=== PATIENT | male | born 1950 | race Caucasian/White ===

== ENCOUNTER 2024-02-13 10:05 | Inpatient (IN) ==
[2024-02-13] MEDS ORDERED: Ondansetron 4 mg VIAL 2 MG/ML 2 ml VIAL IV PRN (12:19)
[2024-02-13 12:31] LABS: ABS Eosinophils 0.1 10^3/uL (0.0-0.5); ABS Lymphocytes 1.5 10^3/uL (1.0-4.8); ABS Monocytes 0.3 10^3/uL (0.0-1.1); ABS Neutrophils 2.6 10^3/uL (1.5-7.6); ABS Nucleated RBC 0.01 10^3/ul; Eosinophil % 1.5 %; Hematocrit 24.5 % (38-53); Hemoglobin 8.5 g/dL (13.2-16.3); Lymphocyte % 32.7 %; Mean Corpuscular Hemoglobin 31.3 pg (27-33); Mean Corpuscular Hgb Conc 34.9 g/dL (31-36); Mean Corpuscular Volume 89.6 fL (80-97); Mean Platelet Volume 9.5 fL (7.5-11.2); Nucleated Red Blood Cells % 0.2 %/100WBC (0.0-0.8); Platelet Count 118 10^3/uL (150-450); Red Blood Count 2.73 10^6/uL (4.06-5.63); Red Cell Distribution Width 16.4 % (12-17); White Blood Count 4.6 10^3/uL (3.6-10.2)
[2024-02-13 13:04] LABS: INR 1.18 (0.85-1.14)
[2024-02-13] MEDS ORDERED: fentaNYL 100 mcg/2 ml 50 MCG/ML VIAL IV SLOW PU PRN (13:11)
[2024-02-13] MEDS: Pentoxifylline CR 400 mg TAB 400 MG PO SCH (13:47)
[2024-02-13 14:25] LABS: Albumin 3.8 g/dL (3.2-5.2); Albumin/Globulin Ratio 1.4 (1-3); C Reactive Protein 55.68 mg/L (<8.01); Calcium 8.4 mg/dL (8.6-10.3); Creatinine, Serum 0.96 mg/dL (0.67-1.17); Globulin 2.8 g/dL (2-4); Potassium 3.7 mmol/L (3.5-5.0); Total Bilirubin 0.9 mg/dL (0.2-1.0); Total Protein 6.6 g/dL (6.4-8.9); eGFR CKD-EPI 83.5 (>60)
[2024-02-13] MEDS ORDERED: Dextrose 50% Syringe 50 ml 25 GM/50 ML SYRINGE IV PUSH PRN (15:46)
[2024-02-13] MEDS: Sulfur Hexaflouride MICROSPHR 25 MG VIAL IV ONE (16:20)
[2024-02-13] MEDS ORDERED: Insulin GLARGINE 100 un/ml 10 ml VIAL SUBCUT SCH (21:00)
[2024-02-14 06:35] LABS: Calcium 8.2 mg/dL (8.6-10.3); Creatinine, Serum 0.98 mg/dL (0.67-1.17); Magnesium 1.7 mg/dL (1.9-2.7); Potassium 3.8 mmol/L (3.5-5.0); eGFR CKD-EPI 81.4 (>60)
[2024-02-14 07:16] LABS: ABS Eosinophils 0.1 10^3/uL (0.0-0.5); ABS Lymphocytes 1.6 10^3/uL (1.0-4.8); ABS Monocytes 0.4 10^3/uL (0.0-1.1); ABS Neutrophils 1.9 10^3/uL (1.5-7.6); ABS Nucleated RBC 0.01 10^3/ul; Hemoglobin 8.1 g/dL (13.2-16.3); Lymphocyte % 39.5 %; Mean Corpuscular Hemoglobin 30.7 pg (27-33); Mean Corpuscular Hgb Conc 33.9 g/dL (31-36); Mean Corpuscular Volume 90.4 fL (80-97); Mean Platelet Volume 9.8 fL (7.5-11.2); Nucleated Red Blood Cells % 0.4 %/100WBC (0.0-0.8); Platelet Count 116 10^3/uL (150-450); Red Blood Count 2.66 10^6/uL (4.06-5.63); Red Cell Distribution Width 16.2 % (12-17); White Blood Count 3.9 10^3/uL (3.6-10.2)
[2024-02-14] MEDS: Magnesium Sulfate 2 gm BAG 2 GM/50 ML BAG IVPB ONE (08:20)
[2024-02-14] MEDS: KCL 20 MEQ/100 ML IVPREMIX 20 MEQ/100 ML BAG IV SCH (09:43)
[2024-02-14] MEDS ORDERED: Midazolam 2 mg/2 ml VIAL 1 mg/ml 2 ml VIAL (2 mg) IV SLOW PU ONE ×2 (12:01→13:50)
[2024-02-14] MEDS ORDERED: Propofol 10 MG/ML 20 ML BTL IV ONE (12:01)
[2024-02-14] MEDS ORDERED: fentaNYL 100 mcg/2 ml 50 MCG/ML VIAL IV ONE ×3 (12:01→15:37)
[2024-02-14] MEDS ORDERED: Lidocaine 2% PF 5 ML VIAL INJ ONE (12:01)
[2024-02-14] MEDS ORDERED: Rocuronium 50 mg VIAL 10 mg/ml 5 ml VIAL (50 mg) IV ONE ×2 (12:09→14:31)
[2024-02-14] MEDS ORDERED: ceFAZolin 2 GM PREMIX 2 GM/50 ML BAG ONE (12:43)
[2024-02-14] MEDS ORDERED: Naloxone 0.4 mg VIAL 0.4 mg/ml 1 ml VIAL IV PRN (12:44)
[2024-02-14] MEDS ORDERED: Phenylephrine IV 10 MG/ML 1 ml VIAL IV ONE (12:53)
[2024-02-14] MEDS ORDERED: Bupivacaine 0.5% SDV PF 30ML VIAL INJ ONE (14:10)
[2024-02-14] MEDS ORDERED: HYDROmorphone 0.5 MG/0.5 ML SYRINGE IV ONE (14:28)
[2024-02-14] MEDS: fentaNYL 100 mcg/2 ml 50 MCG/ML VIAL IV PRN (15:40)
[2024-02-14 15:49] LABS: Hematocrit 23.6 % (38-53); Hemoglobin 7.9 g/dL (13.2-16.3)
[2024-02-14] MEDS ORDERED: Magnesium Hydroxide LIQ 30 ML UDC PO PRN (16:10)
[2024-02-14] MEDS ORDERED: Morphine 2 MG/ML SYRINGE IV PRN (16:10)
[2024-02-14] MEDS ORDERED: Polyethylene Glycol 3350 17 GM PACKET PO PRN (16:10)
[2024-02-14] MEDS: Lactated Ringers 1000 ml BAG 1,000 ML IV SCH (16:39)
[2024-02-14] MEDS: Magnesium Hydroxide LIQ 30 ML UDC PO SCH (22:20)
[2024-02-14] MEDS: ceFAZolin 1 GM ADVAN 1 GM in NS 0.9% 50 ML 50 ML IVPB SCH (22:20)
[2024-02-15 07:16] LABS: Calcium 7.6 mg/dL (8.6-10.3); Creatinine, Serum 1.15 mg/dL (0.67-1.17); Potassium 4.7 mmol/L (3.5-5.0); eGFR CKD-EPI 67.2 (>60)
[2024-02-15 07:27] LABS: Hematocrit 18.7 % (38-53); Hemoglobin 6.4 g/dL (13.2-16.3); Mean Platelet Volume 9.8 fL (7.5-11.2); Platelet Count 113 10^3/uL (150-450)
[2024-02-15] MEDS: Calcium Citrate 200 mg TAB PO SCH (11:39)
[2024-02-15 15:29] LABS: Hemoglobin 7.6 g/dL (13.2-16.3)
[2024-02-16 06:13] LABS: Hemoglobin 8.8 g/dL (13.2-16.3); Mean Platelet Volume 9.7 fL (7.5-11.2); Platelet Count 124 10^3/uL (150-450)
[2024-02-16 07:11] LABS: Creatinine, Serum 0.88 mg/dL (0.67-1.17); Potassium 4.3 mmol/L (3.5-5.0); eGFR CKD-EPI 90.8 (>60)
[2024-02-16] MEDS: Aspirin EC 81 mg TAB.EC (enteric coated) PO SCH (08:31)
[2024-02-16] MEDS: Enoxaparin 40 MG/0.4 ML SYR SUBCUT SCH (12:30)
[2024-02-16] MEDS: Insulin GLARGINE 100 un/ml 10 ml VIAL SUBCUT SCH (22:13)
[2024-02-17 05:58] LABS: Hematocrit 25.3 % (38-53); Hemoglobin 8.7 g/dL (13.2-16.3); Mean Platelet Volume 9.3 fL (7.5-11.2); Platelet Count 159 10^3/uL (150-450)
[2024-02-17 06:49] LABS: Calcium 8.4 mg/dL (8.6-10.3); Creatinine, Serum 0.83 mg/dL (0.67-1.17); Potassium 4.1 mmol/L (3.5-5.0); eGFR CKD-EPI 92.4 (>60)
[2024-02-17] MEDS: Insulin GLARGINE 100 un/ml 10 ml VIAL SUBCUT SCH (21:15)
[2024-02-17] MEDS: Senna TAB 8.6 mg TAB PO PRN (21:19)
[2024-02-18] MEDS: Pentoxifylline CR 400 mg TAB 400 MG PO SCH (14:20)
[2024-02-19 08:34] LABS: Hematocrit 27.6 % (38-53); Hemoglobin 9.5 g/dL (13.2-16.3)
[2024-02-19] MEDS ORDERED: DALBAVANCIN HCL (NF) 500 MG/25 ML VIAL IVPB ONE (09:30)
[2024-02-19 10:35] VITALS: BP 110/97
[2024-02-19] MEDS: DALVANCE 1500 MG IV ONCE (for CrCl >/= 30 or regular HD) IVPB ONE (10:55)
== END 2024-02-19 14:30 | disposition home health service (06) | DRG 481 ==
LOC: ED 10:05 → EDHOLD 12:19 → SUATTDRO 12:19 → EDHOLD 17:54 → SSU 18:18
PROVIDERS: ADMIT Student in an Organized Health Care Education/Training Program; ATTEND Internal Medicine